=== PATIENT | female | born 1950 | race Caucasian/White ===

== ENCOUNTER 2022-05-13 06:22 | Day surgery (SDC) | payer OTHER ==
[~2022-05-13] VITALS: Ht 152.4 cm; Wt 73.9 kg
[~2022-05-13 06:22] MED LIST: CAPT25TA10 PO; NAPR375T2 PO; OMEP40EC24 PO; TRAM50TA1 PO
[2022-05-13] MEDS ORDERED: diphenhydrAMINE 50 MG/ML VIAL ONE (08:04)
[2022-05-13] MEDS ORDERED: fentaNYL citrate 0.05 MG/ML VIAL ONE (08:04)
[2022-05-13] MEDS ORDERED: MIDAZOLAM 2 MG/2 ML VIAL ONE (08:05)
[2022-05-13] MEDS ORDERED: MIDAZOLAM 2 MG/2 ML VIAL IVP ONE (12:45)
[2022-05-13] MEDS ORDERED: fentaNYL citrate 0.05 MG/ML VIAL IVP ONE (12:45)
== END 2022-05-13 09:15 | disposition home or self-care (01) ==
LOC: MOR 06:22 → MMU 06:23 → MOR 09:15
PROVIDERS: ATTEND Internal Medicine Gastroenterology
DX: R10.13 Epigastric pain (principal); K21.9 Gastro-esophageal reflux disease without esophagitis; I10 Essential (primary) hypertension; Z90.49 Acquired absence of other specified parts of digestive tract; Z79.899 Other long term (current) drug therapy; Z20.822 Contact with and (suspected) exposure to COVID-19
CPT/HCPCS: 88305; 88312; 88313; 88342; J1200; J2250; J3010

== ENCOUNTER 2023-04-12 09:31 | Day surgery (SDC) | payer OTHER ==
[~2023-04-12] VITALS: Ht 149.9 cm; Wt 61.2 kg
[2023-04-12] MEDS ORDERED: diphenhydrAMINE 50 MG/ML VIAL ONE (11:14)
[2023-04-12] MEDS ORDERED: MIDAZOLAM 5 MG/5 ML VIAL ONE (11:15)
[2023-04-12] MEDS ORDERED: fentaNYL citrate 0.05 MG/ML VIAL ONE (11:15)
[2023-04-12] MEDS ORDERED: MIDAZOLAM 5 MG/5 ML VIAL IV ONE (13:05)
[2023-04-12] MEDS ORDERED: fentaNYL citrate 0.05 MG/ML VIAL IVP ONE (13:05)
== END 2023-04-12 12:30 | disposition home or self-care (01) ==
LOC: MDS 09:31 → MMU 10:22 → MDS 12:30
PROVIDERS: ATTEND Internal Medicine Gastroenterology
DX: Z12.11 Encounter for screening for malignant neoplasm of colon (principal); Z86.010 Personal history of colon polyps; K57.30 Diverticulosis of large intestine without perforation or abscess without bleeding; K21.9 Gastro-esophageal reflux disease without esophagitis; I10 Essential (primary) hypertension; Z90.49 Acquired absence of other specified parts of digestive tract; Z79.899 Other long term (current) drug therapy
CPT/HCPCS: 45378; J2250; J3010; J1200